=== PATIENT | male | born 1945 | race Caucasian/White ===

== ENCOUNTER 2016-11-30 04:05 | Emergency (ER) | payer MEDICARE, OTHER ==
[~2016-11-30] VITALS: Ht 170.2 cm; Wt 150.0 kg
[~2016-11-30 04:05] MED LIST: DILA2TAB4 PO; FLAG500T PO; LEVA500T PO; LEVO125T3 PO
[2016-11-30 04:08] VITALS: BP 167/100; PULSE 80; RESP 20; TEMP 97.4; O2SAT 98
--- NOTE | 2016-11-30 04:15 | PD ---
HPI Chief Complaint: Lump, Cyst, Hernia Time Seen by Provider: 04:15 Travel History International Travel<30 days: No Contact w/Intl Traveler<30days: No Traveled to known affect area: No History of Present Illness HPI Patient is a 71 year old male who presents to ER with complaint of abscess to left buttocks. Patient reports that he noticed a "bump" on his left buttocks 2 days ago, reports that this "bump" got bigger and now he has pain with sitting down. Reports that tetanus is not up to date. No fever/chills. No other c/o. PFSH Past Medical History Diminished Hearing: No Thyroid Disease: Yes Tetanus Vaccination: Unknown Influenza Vaccination: No Past Surgical History Surgical History: No Previous Surgery Social History Alcohol Use: No Tobacco Use: No Substance Use: No Allergies-Medications (Allergen,Severity, Reaction): Coded Allergies: No Known Allergies (Unverified , 11/30/16) Reported Meds & Prescriptions Reported Meds & Active Scripts Active Probiotic (Lactobacillus Acidophilus) 10 Billion Cell Cap 1 Cap PO TIDAC 7 Days Ibuprofen 600 Mg Tab 600 Mg PO Q6H PRN Clindamycin (Clindamycin HCl) 300 Mg Cap 300 Mg PO Q6H 7 Days Flagyl (Metronidazole) 500 Mg Tab 500 Mg PO TID Levaquin 500 Mg Tab (Levofloxacin) 500 Mg Tab 500 Mg PO DAILY Dilaudid (Hydromorphone HCl) 2 Mg Tab 2 Mg PO Q4H Reported Levothyroxine 125 mcg (Levothyroxine Sodium) 125 Mcg Tab 125 Mcg PO DAILY Review of Systems General / Constitutional: No: Fever, Chills Eyes: No: Visual changes HENT: No: Headaches Cardiovascular: No: Chest Pain or Discomfort Respiratory: No: Shortness of Breath Gastrointestinal: No: Abdominal Pain Genitourinary: No: Dysuria Musculoskeletal: No: Pain Skin: Positive Other (abscess to left gluteus), No Rash Neurologic: No: Weakness Psychiatric: No: Depression Endocrine: No: Polydipsia Hematologic/Lymphatic: No: Easy Bruising Physical Exam Narrative GENERAL: NAD, Nontoxic SKIN: Focused skin assessment warm/dry. HEAD: Atraumatic. Normocephalic. CARDIOVASCULAR: Regular rate and rhythm. No murmur appreciated. RESPIRATORY: No accessory muscle use. Clear to auscultation. Breath sounds equal bilaterally. GASTROINTESTINAL: Abdomen soft, non-tender, nondistended. Hepatic and splenic margins not palpable. patient with fluctuant abscess to left gluteus, there is no surrounding cellulitis MUSCULOSKELETAL: No obvious deformities. No clubbing. No cyanosis. No edema. NEUROLOGICAL: Awake and alert. No obvious cranial nerve deficits. Motor grossly within normal limits. Normal speech. PSYCHIATRIC: Appropriate mood and affect; insight and judgment normal. Data Data Last Documented VS Vital Signs Date Time Temp Pulse Resp B/P (MAP) Pulse Ox O2 Delivery O2 Flow Rate FiO2 11/30/16 04:11 16 11/30/16 04:08 97.4 80 167/100 (122) 98 Room Air Orders Orders Tetanus/Diphtheria Tox Adult (Tetanus/Di (11/30/16 04:30) Clindamycin (Cleocin) (11/30/16 04:45) MDM Medical Decision Making Medical Screen Exam Complete: Yes Emergency Medical Condition: Yes Interpretation(s) Vital Signs Date Time Temp Pulse Resp B/P (MAP) Pulse Ox O2 Delivery O2 Flow Rate FiO2 11/30/16 04:11 16 11/30/16 04:08 97.4 80 20 167/100 (122) 98 Room Air Differential Diagnosis gluteal abscess Narrative Course patient with gluteal abscess. vss. plan to I&D abscess. will start patient on antibiotics (clindamycin). will have him return to ER or to pcp in 48 hours for re-evaluation of symptoms as well as packing removal. signs and symptoms of when to return to the ER was reviewed with patient in detail Diagnosis Primary Impression: Gluteal abscess Patient Instructions: General Instructions Additional Instructions: Please have packing removed in 48 hours, you will need your wound re-evaluated at that time Please take all antibiotics as prescribed Return to ER if you develop fever/chills/worsening symptoms Med/Other Pt SpecificInfo: Prescription(s) given Scripts Lactobacillus Acidophilus (Probiotic) 10 Billion Cell Cap 1 CAP PO TIDAC for Nutritional Supplement for 7 Days, #90 CAP 0 Refills Prov: Nusrat Street DO 11/30/16 Ibuprofen (Ibuprofen) 600 Mg Tab 600 MG PO Q6H Y for Pain/Inflammation, #40 TAB 0 Refills Prov: Nusrat Street DO 11/30/16 Clindamycin (Clindamycin) 300 Mg Cap 300 MG PO Q6H for Infection for 7 Days, #28 CAP 0 Refills Prov: Nusrat Street DO 11/30/16 Disposition: 01 DISCHARGE HOME Condition: Stable Nusrat Street DO Nov 30, 2016 04:15
[2016-11-30] MEDS ORDERED: TETANUS/DIPHTHERIA TOXOID ADULT 0.5 ML VIAL IM ONE (04:30)
[2016-11-30] MEDS ORDERED: CLIN1CAP6 PO (04:39)
[2016-11-30] MEDS ORDERED: IBUP-232 PO (04:39)
[2016-11-30] MEDS ORDERED: LACTCAP8 PO (04:41)
[2016-11-30] MEDS ORDERED: CLINDAMYCIN 150 MG CAP PO ONE (04:45)
== END 2016-11-30 05:08 | disposition home or self-care (01) ==
LOC: NEPE 04:05
DX: L02.31 Cutaneous abscess of buttock (principal)
CPT/HCPCS: 99283

== ENCOUNTER 2016-12-02 03:42 | Emergency (ER) | payer MEDICARE, OTHER ==
[~2016-12-02] VITALS: Ht 170.2 cm; Wt 148.0 kg
[~2016-12-02 03:42] MED LIST changes: +CLIN1CAP6 PO; +IBUP-232 PO; +LACTCAP8 PO
[2016-12-02 03:47] VITALS: BP 161/91; PULSE 85; RESP 20; TEMP 98.3; O2SAT 95
--- NOTE | 2016-12-02 04:02 | PD ---
HPI Chief Complaint: Skin Problem Time Seen by Provider: 03:53 Travel History International Travel<30 days: No Contact w/Intl Traveler<30days: No Traveled to known affect area: No History of Present Illness HPI The patient is a 71-year-old male that had a left gluteal abscess that was drained on the . He was told to return in 48 hours for packing removal. He states it is doing very well and is not hurting very much. PFSH Past Medical History Diminished Hearing: No Thyroid Disease: Yes Social History Alcohol Use: No Tobacco Use: No Substance Use: No Allergies-Medications (Allergen,Severity, Reaction): Coded Allergies: No Known Allergies (Unverified , 12/02/16) Reported Meds & Prescriptions Reported Meds & Active Scripts Active Probiotic (Lactobacillus Acidophilus) 10 Billion Cell Cap 1 Cap PO TIDAC 7 Days Clindamycin (Clindamycin HCl) 300 Mg Cap 300 Mg PO Q6H 7 Days Review of Systems Except as stated in HPI: all other systems reviewed are Neg Physical Exam Narrative GENERAL: Well-nourished, alert and oriented, morbidly obese patient in no apparent distress. His vital signs show blood pressure 161/91 but otherwise normal. SKIN: Focused skin assessment warm/dry. The left buttocks has a packing that has fallen out but is resolving well and is minimally tender. This abscess apparently was not associated with the rectum. HEAD: Normocephalic. EYES: No scleral icterus. No injection or drainage. NECK: Supple, trachea midline. No JVD or lymphadenopathy. CARDIOVASCULAR: Regular rate and rhythm without murmurs, gallops, or rubs. RESPIRATORY: Breath sounds equal bilaterally. No accessory muscle use. GASTROINTESTINAL: Abdomen soft, non-tender, nondistended. MUSCULOSKELETAL: No cyanosis, or edema. BACK: Nontender without obvious deformity. No CVA tenderness. Data Data Last Documented VS Vital Signs Date Time Temp Pulse Resp B/P (MAP) Pulse Ox O2 Delivery O2 Flow Rate FiO2 12/02/16 03:55 78 18 12/02/16 03:47 98.3 161/91 (114) 95 MDM Medical Decision Making Medical Screen Exam Complete: Yes Emergency Medical Condition: Yes Medical Record Reviewed: Yes Differential Diagnosis Resolving buttocks abscess, packing removal, anorectal fistula Narrative Course This abscess does not appear to be an anorectal fistula. This appears to be resolving abscess of the buttocks. The packing has fallen out. Diagnosis Primary Impression: Abscess packing removal Additional Instructions: As we discussed, sit in a tub of warm water twice daily and this abscess should slowly resolve. If worse, return to emergency department or follow-up with a colorectal surgeon. Disposition: 01 DISCHARGE HOME Condition: Stable Zev Tate MD Dec 02, 2016 04:02
== END 2016-12-02 04:11 | disposition home or self-care (01) ==
LOC: PHED 03:42
DX: L02.31 Cutaneous abscess of buttock (principal); Z48.01 Encounter for change or removal of surgical wound dressing
CPT/HCPCS: 99281

== ENCOUNTER 2017-03-22 19:12 | Emergency (ER) | payer MEDICARE, OTHER ==
[~2017-03-22] VITALS: Ht 170.2 cm; Wt 145.4 kg
[~2017-03-22 19:12] MED LIST changes: -CLIN1CAP6 PO; +CLIN300C5 PO; -DILA2TAB4 PO; -FLAG500T PO; -IBUP-232 PO; -LEVA500T PO; -LEVO125T3 PO
[2017-03-22 19:20] VITALS: BP 137/68; PULSE 113; RESP 20; TEMP 96.7; O2SAT 95
[2017-03-22] MEDS ORDERED: CLIN300C5 PO (20:13)
--- NOTE | 2017-03-22 20:15 | PD ---
HPI Chief Complaint: Skin Problem Time Seen by Provider: 19:44 Travel History International Travel<30 days: No Contact w/Intl Traveler<30days: No Traveled to known affect area: No History of Present Illness HPI 71-year-old male here with abscess to left buttocks and one week. He reports pain with sitting and walking. Denies fever or chills. Pain is alleviated by standing or alleviating pressure from the buttocks. Symptom severity is moderate. PFSH Past Medical History Cardiovascular Problems: Yes (HTN) Diminished Hearing: No Thyroid Disease: Yes Social History Alcohol Use: No Tobacco Use: No Substance Use: No Allergies-Medications (Allergen,Severity, Reaction): Coded Allergies: No Known Allergies (Unverified , 12/02/16) Reported Meds & Prescriptions Reported Meds & Active Scripts Active Probiotic (Lactobacillus Acidophilus) 10 Billion Cell Cap 1 Cap PO TIDAC 7 Days Clindamycin (Clindamycin HCl) 300 Mg Cap 300 Mg PO Q6H 7 Days Review of Systems Except as stated in HPI: all other systems reviewed are Neg General / Constitutional: No: Fever Eyes: No: Visual changes HENT: No: Headaches Cardiovascular: No: Chest Pain or Discomfort Respiratory: No: Shortness of Breath Gastrointestinal: No: Abdominal Pain Genitourinary: No: Dysuria Physical Exam Narrative GENERAL: Alert well-appearing male SKIN: Warm and dry. 1 cm fluctuant abscess to left buttocks, small amount of bloody purulent drainage, no surrounding cellulitis HEAD: Normocephalic. EYES: No injection or drainage. NECK: Supple, trachea midline. CARDIOVASCULAR: Regular rate and rhythm RESPIRATORY: Breath sounds equal bilaterally. No accessory muscle use. GASTROINTESTINAL: Abdomen soft, non-tender, nondistended. Data Data Last Documented VS Vital Signs Date Time Temp Pulse Resp B/P (MAP) Pulse Ox O2 Delivery O2 Flow Rate FiO2 03/22/17 19:20 96.7 113 20 137/68 (91) 95 Room Air MDM Medical Decision Making Medical Screen Exam Complete: Yes Emergency Medical Condition: Yes Differential Diagnosis Abscess, cellulitis, inflamed sebaceous cyst Narrative Course 71-year-old male here with abscess to his left buttocks. Incision and drainage performed. Patient tolerated procedure well. Vital signs are stable. Patient is nontoxic-appearing. He'll be treated with [facility] [place] and instructed follow -up with his primary doctor in 2 days Procedures Procedure Narrative INCISION AND DRAINAGE OF ABSCESS: The area was prepped and was sterilely draped. A subcutaneous wheal of 1 % Xylocaine [with epi] with a total number 1 mL was used to anesthetize the area properly. A number 11 scalpel was used to make a 0.5 -cm incision across the area of the abscess. The abscess was drained , complex loculations were broken down, and irrigated with normal saline. Sterile dressing applied. Patient advised to have packing removed in two days. Diagnosis Primary Impression: Abscess Referrals: Primary Care Physician Additional Instructions: Cleansed the area daily with soap and water. Change the dressing daily. Antibiotics as prescribed. Follow-up with her primary doctor in 2 days for recheck. Scripts Clindamycin (Clindamycin) 300 Mg Cap 300 MG PO Q6H for Infection for 10 Days, #40 CAP 0 Refills Prov: Vickie Thompson 03/22/17 Disposition: 01 DISCHARGE HOME Condition: Stable Vickie Thompson Mar 22, 2017 20:15
== END 2017-03-22 20:30 | disposition home or self-care (01) ==
LOC: NEPK 19:12
DX: L02.31 Cutaneous abscess of buttock (principal); I10 Essential (primary) hypertension
CPT/HCPCS: 10061

== ENCOUNTER 2017-08-31 09:39 | Emergency (ER) | payer MEDICARE, OTHER ==
[~2017-08-31] VITALS: Ht 165.1 cm; Wt 150.0 kg
[2017-08-31 09:40] VITALS: BP 168/97; PULSE 90; RESP 20; TEMP 98.5; O2SAT 93
[2017-08-31] MEDS ORDERED: CYCL10TA PO (10:42)
[2017-08-31] MEDS ORDERED: PRED20 PO (10:42)
[2017-08-31] MEDS ORDERED: HYDR-3516 PO (10:42)
[2017-08-31] MEDS ORDERED: KETOROLAC TROMETHAMINE 60 MG/2 ML (IM) VIAL IM ONE (10:45)
[2017-08-31] MEDS ORDERED: ACETAMINOPHEN/HYDROcodone 325 MG/5 MG TAB PO ONE (10:45)
[2017-08-31] MEDS ORDERED: predniSONE 20 MG TAB PO ONE (10:45)
--- NOTE | 2017-08-31 10:50 | PD ---
HPI Chief Complaint: Back/ Neck Pain or Injury Time Seen by Provider: 10:36 Travel History International Travel<30 days: No Contact w/Intl Traveler<30days: No Traveled to known affect area: No History of Present Illness HPI 71-year-old male presents emergency department with right low back pain with radicular pain into the right hip and upper thigh since yesterday. Patient denies any specific injury to the area. He denies weakness but has increased pain with ambulation. Patient states he has had this in the past, previously treated with healthcare technician. Patient was unable to get into his chiropractor today which is why he came in. He denies changes in bowel or bladder. No recent fever or illness. He denies rash. Pain is currently 7 out of 10 and worse with ambulation. He has no known drug allergies. PFSH Past Medical History Cardiovascular Problems: Yes (HTN) Diminished Hearing: No Thyroid Disease: Yes Social History Alcohol Use: No Tobacco Use: No Substance Use: No Allergies-Medications (Allergen,Severity, Reaction): Coded Allergies: No Known Allergies (Unverified , 12/02/16) Reported Meds & Prescriptions Reported Meds & Active Scripts Active Hydrocodone-Acetaminophen 5-325 mg Tab 1 Tab PO Q6H PRN Flexeril (Cyclobenzaprine HCl) 10 Mg Tab 10 Mg PO TID Prednisone 20 Mg Tab 20 Mg PO BID 5 Days Clindamycin (Clindamycin HCl) 300 Mg Cap 300 Mg PO Q6H 10 Days Probiotic (Lactobacillus Acidophilus) 10 Billion Cell Cap 1 Cap PO TIDAC 7 Days Clindamycin (Clindamycin HCl) 300 Mg Cap 300 Mg PO Q6H 7 Days Review of Systems Except as stated in HPI: all other systems reviewed are Neg General / Constitutional: No: Fever Eyes: No: Visual changes HENT: No: Headaches Cardiovascular: No: Chest Pain or Discomfort Respiratory: No: Shortness of Breath Gastrointestinal: No: Abdominal Pain Genitourinary: No: Dysuria Musculoskeletal: Positive: Arthralgias, Limited ROM, Pain Skin: No Rash Neurologic: No: Weakness Psychiatric: No: Depression Endocrine: No: Polydipsia Hematologic/Lymphatic: No: Easy Bruising Physical Exam Narrative GENERAL: Patient appears in mild distress. SKIN: Warm and dry. Normal color. Normal turgor. No rash HEAD: Atraumatic. Normocephalic. EYES: Pupils equal and round. No scleral icterus. No injection or drainage. ENT: No nasal bleeding or discharge. Mucous membranes pink and moist. Pharynx is clear. Airways patent NECK: Trachea midline. Supple nontender. CARDIOVASCULAR: Regular rate and rhythm. RESPIRATORY: No accessory muscle use. Clear to auscultation. Breath sounds equal bilaterally. GASTROINTESTINAL: Abdomen soft, non-tender, nondistended. Hepatic and splenic margins not palpable. No CVA tenderness MUSCULOSKELETAL: Extremities without clubbing, cyanosis, or edema. No obvious deformities. Patient complains of pain with palpation in the right lower lumbar spine without specific bony tenderness in the midline. Pain is reproducible in the right sciatic notch, and the patient has positive straight leg raise pain at 30 on the right. Patient has normal plantar and dorsiflexion strength. No numbness is appreciated on exam. NEUROLOGICAL: Awake and alert. No obvious cranial nerve deficits. Motor grossly within normal limits. Five out of 5 muscle strength in the arms and legs. Normal speech. PSYCHIATRIC: Appropriate mood and affect; insight and judgment normal. Data Data Last Documented VS Vital Signs Date Time Temp Pulse Resp B/P (MAP) Pulse Ox O2 Delivery O2 Flow Rate FiO2 08/31/17 09:40 98.5 90 20 168/97 (120) 93 Orders Orders Ketorolac Inj (Toradol Inj) (08/31/17 10:45) Prednisone (Deltasone) (08/31/17 10:45) Acetamin-Hydrocod 325-5 Mg ([place] 5-325 (08/31/17 10:45) MDM Medical Decision Making Medical Screen Exam Complete: Yes Emergency Medical Condition: Yes Differential Diagnosis Lumbar back pain. Sciatica. Spinal stenosis. Narrative Course Patient is treated with Toradol 30 mg IM Patient is given prednisone 40 mg p.o. now. Patient is given Lortab 5/325 p.o. now. Radiographic imaging at this time is not felt warranted. Patient was treated on outpatient basis with prednisone 20 mg twice daily for 5 days. Patient also given Flexeril 10 mg up to 3 times daily #15 Patient also given hydrocodone/acetaminophen 5/325 one tab every 6 hours as needed pain #12 Patient is encouraged to use heat, ice, and frequently walk. Patient to follow-up with his primary care physician or chiropractor if symptoms persist. He can return with worsening symptoms especially worsening pain and weakness Diagnosis Primary Impression: Right-sided low back pain with sciatica Qualified Codes: M54.41 - Lumbago with sciatica, right side Patient Instructions: General Instructions, Lower Back Exercises (ED), Lumbar Radiculopathy (ED) Additional Instructions: Patient is treated with Toradol 30 mg IM Patient is given prednisone 40 mg p.o. now. Patient is given Lortab 5/325 p.o. now. Radiographic imaging at this time is not felt warranted. Patient was treated on outpatient basis with prednisone 20 mg twice daily for 5 days. Patient also given Flexeril 10 mg up to 3 times daily #15 Patient also given hydrocodone/acetaminophen 5/325 one tab every 6 hours as needed pain #12 Patient is encouraged to use heat, ice, and frequently walk. Patient to follow-up with his primary care physician or chiropractor if symptoms persist. He can return with worsening symptoms especially worsening pain and weakness Med/Other Pt SpecificInfo: Prescription(s) given Scripts Hydrocodone-Acetaminophen (Hydrocodone-Acetaminophen) 5-325 mg Tab 1 TAB PO Q6H Y for PAIN, #12 TAB 0 Refills Prov: Emmanuel Ayala MD 08/31/17 Cyclobenzaprine (Flexeril) 10 Mg Tab 10 MG PO TID for Muscle Spasm, #15 TAB 0 Refills Prov: Emmanuel Ayala MD 08/31/17 Prednisone (Prednisone) 20 Mg Tab 20 MG PO BID for 5 Days, #10 TAB 0 Refills Prov: Emmanuel Ayala MD 08/31/17 Disposition: 01 DISCHARGE HOME Condition: Stable Markel Petersen Aug 31, 2017 10:50
[2017-08-31 11:00] VITALS: BP 168/97; PULSE 90; RESP 20; O2SAT 94
== END 2017-08-31 11:36 | disposition home or self-care (01) ==
LOC: NEPD 09:39
DX: M54.41 Lumbago with sciatica, right side (principal)
CPT/HCPCS: 96372; 99283; J1885; J7512